=== PATIENT | female | born 1970 | race Caucasian/White ===

== ENCOUNTER → 2018-03-09 | Outpatient (CLI) | payer OTHER ==
--- NOTE | 2018-03-09 12:50 | CT ---
Indication: Mental status changes and headaches. Exam: CT head without contrast Technique: Routine transaxial images were obtained through the brain without contrast. Findings: The ventricles are normal. No intracranial hemorrhage or edema is seen. There is no extra-a xial fluid collection or mass. The bones are intact. Impression: No abnormality seen. Reported By:
== END ==
LOC: RAD 12:25
PROVIDERS: ATTEND Physician Assistant
DX: R41.0 Disorientation, unspecified (principal)
CPT/HCPCS: 70450